=== PATIENT | female | born 1960 | race Caucasian/White ===

== ENCOUNTER 2017-09-07 10:32 | Emergency (ER) | payer MEDICARE ==
[~2017-09-07] VITALS: Ht 127 cm; Wt 99.8 kg
[2017-09-07 10:37] VITALS: BP 146/96
[2017-09-07] MEDS ORDERED: Surgicel 4in x 8in TOPIC ONE ×2 (10:52→11:15)
--- NOTE | 2017-09-07 11:01 | Emergency Room Report ---
History of Present Illness General Chief Complaint: Laceration Source: Patient, Medical Record Present Illness HPI Patient presents with complaints of laceration to the distal tip of the left ring finger This happened just prior to arrival when the patient was cutting tomatoes Denies any trauma to the wrist denies any elbow pain Patient is on Plavix and aspirin and as the area continued to bleed she was concerning came to the ER Denies any lightheadedness denies any chest pain or shortness of breath Patient had last tetanus shot about 2 years ago Allergies: Coded Allergies: No Known Allergies (Unverified , 09/07/17) Patient History Past Medical History: see triage record Pertinent Family History: none Last Menstrual Period: 2005 Reviewed Nursing Documentation: PMH: Agreed, PSxH: Agreed Nursing Documentation-PMH Past Medical History: No History, Except For Hx Hypertension: Yes Hx Diabetes: Yes Review of Systems All Other Systems: negative except mentioned in HPI Physical Exam Vital Signs Date Time Temp Pulse Resp B/P (MAP) Pulse Ox O2 Delivery O2 Flow Rate FiO2 09/07/17 10:37 97.9 74 18 146/96 98 Room Air Sp02 EP Interpretation: reviewed, normal General Appearance: well appearing, no apparent distress Head: normocephalic, atraumatic Eyes: bilateral eye PERRL, bilateral eye EOMI ENT: hearing grossly normal, normal pharynx Neck: full range of motion, supple Respiratory: lungs clear Musculoskeletal: other - Patient has small distal fourth finger tip avulsion there is some oozing of blood, no obvious secondary hematomas does not appear to involve the nailbed or the nail,, Neurologic: alert, oriented x3, responsive Psychiatric: normal inspection Skin: other - as above Lymphatic: no adenopathy Procedures Laceration/Wound Repair Progress The area was irrigated and cleansed This is a skin avulsion Total length is approximately half centimeter Patient had surgery seal mesh applied to the top layer after this bulky pressure type dressing was applied to the finger It did control the bleeding well and patient tolerated the procedure well Medical Decision Making Diagnostic Impression: Primary Impression: Laceration Additional Impression: Avulsion, skin ER Course The clinical exam and the findings are in line with what appears to be distal fingertip avulsion/amputation There are no areas requiring actual suturing at this time however the wound was addressed as noted above with Surgicel dressing and pressure dressing Patient requires close outpatient followup and will return with any concerns Last Vital Signs Date Time Temp Pulse Resp B/P (MAP) Pulse Ox O2 Delivery O2 Flow Rate FiO2 09/07/17 10:37 97.9 74 18 146/96 98 Room Air Status: improved Disposition: HOME, SELF-CARE Condition: Improved Additional Instructions: Patient is provided with the discharge instructions notified to follow up with primary doctor in the next 2-3 days otherwise return to the er with any worsening symptoms. Please note that this report is being documented using [employer] technology. This can lead to erroneous entry secondary to incorrect interpretation by the dictating instrument. JESSIE BARBER D.O. Sep 07, 2017 11:01
[2017-09-07] MEDS ORDERED: Promethazine 25mg tab ORAL ONE (11:15)
[2017-09-07 11:54] VITALS: BP 142/92
== END 2017-09-07 12:00 | disposition home or self-care (01) ==
LOC: EMR 10:45
DX: S61.215A Laceration without foreign body of left ring finger without damage to nail, initial encounter (principal); S61.205A Unspecified open wound of left ring finger without damage to nail, initial encounter; E11.9 Type 2 diabetes mellitus without complications; I10 Essential (primary) hypertension; W26.0XXA Contact with knife, initial encounter; Y93.9 Activity, unspecified; Y92.9 Unspecified place or not applicable; Z79.01 Long term (current) use of anticoagulants; Z79.82 Long term (current) use of aspirin
CPT/HCPCS: 99284